=== PATIENT | male | born 1985 | race Caucasian/White ===

== ENCOUNTER 2016-07-15 13:53 | Inpatient (IN) | payer BC ==
[2016-07-15 15:18] VITALS: BMI 28.8
--- NOTE | 2016-07-15 16:23 | HP ---
COWS - Scale Resting Pulse: 0= [place] 80 or Below Sweatin= Chills/Flushing Restless Observation: 3= Extraneous Movement Pupil Size: 2= Moderately Dilated Bone or Joint Aches: 2= Severe Diffuse Aches Runny Nose/ Eye Tearin= Runny Nose/Eyes GI Upset > 30mins: 3= Vomiting/Diarrhea Tremor Observation: 2= Slight Tremor Visible Yawning Observation: 2= >3x During Session Anxiety or Irritability: 2=Irritable/Anxious Goose Flesh Skin: 0=Smooth Skin COWS Score: 19 Admission ROS S - HPI Chief Complaint: i need help to stop using heroin,cocaine and marijuana Allergies/Adverse Reactions: Allergies Allergy/AdvReac Type Severity Reaction Status Date / Time No Known Allergies Allergy Verified 07/15/16 16:02 History of Present Illness: this 31 tears old male with heroin,cocaine and marijuana dependence,seeking detox,never been in detox before anxiety and insomnia nicotine dependence Exam Limitations: No Limitations - Ebola screening Have you traveled outside of the country in the last 21 days: No Have you had contact with anyone from an Ebola affected area: No Have you been sick,other than usual withdrawal symptoms: No Do you have a fever: No - Review of Systems Constitutional: Chills, Diaphoresis, Loss of Appetite, Malaise, Night Sweats, Changes in sleep, Weakness, Unintentional Wgt. Loss EENT: reports: Tearing, Nose Congestion Cardiac: reports: No Symptoms Reported GI: reports: Diarrhea, Nausea, Vomiting, Abdominal cramping : reports: No Symptoms Reported Musculoskeletal: reports: Back Pain, Joint Pain, Muscle Pain, Joint Stiffness Integumentary: reports: Dryness Neuro: reports: Headache, Tremors Endocrine: reports: No Symptoms Reported Hematology: reports: No Symptoms Reported Psychiatric: reports: No Sypmtoms Reported, Judgement Intact, Mood/Affect Appropiate, Orientated x3 (insomnia), Anxious Patient History - Patient Medical History Hx Anemia: No Hx Asthma: No Hx Chronic Obstructive Pulmonary Disease (COPD): No Hx Cancer: No Hx Cardiac Disorders: No Hx Congestive Heart Failure: No Hx Hypertension: No Hx Hypercholesterolemia: No Hx Pacemaker: No HX Cerebrovascular Accident: No Hx Seizures: No Hx Dementia: No Hx Diabetes: No Hx Gastrointestinal Disorders: No Hx Liver Disease: No Hx Genitourinary Disorders: No Hx Sexually Transmitted Disorders: No Hx Renal Disease (ESRD): No Hx Thyroid Disease: No Hx Human Immunodeficiency Virus (HIV): No Hx Hepatitis C: No Hx Depression: No Hx Suicide Attempt: No Hx Bipolar Disorder: No Hx Schizophrenia: No Other Medical History: anxiety,insonia - Patient Surgical History Past Surgical History: No Hx Neurologic Surgery: No Hx Cataract Extraction: No Hx Cardiac Surgery: No Hx Lung Surgery: No Hx Breast Surgery: No Hx Breast Biopsy: No Hx Abdominal Surgery: No Hx Appendectomy: No Hx Cholecystectomy: No Hx Genitourinary Surgery: No Hx Section: No Hx Orthopedic Surgery: No Anesthesia Reaction: No - PPD History Previous Implant?: Yes Documented Results: Negative w/o proof Implanted On Prior R Admission?: No - Smoking Cessation Smoking history: Current every day smoker Have you smoked in the past 12 months: Yes Aproximately how many cigarettes per day: 10 Hx Chewing Tobacco Use: No Initiated information on smoking cessation: Yes 'Breaking Loose' booklet given: 07/15/16 - Substance & Tx. History Hx Alcohol Use: No Hx Substance Use: Yes Substance Use Type: Cocaine, Heroin Hx Substance Use Treatment: No - Substances Abused Heroin Route: Inhalation Frequency: Daily Amount used: 10 BAGS Age of first use: 30 Date of Last Use: 07/14/16 Crack Route: Smoking Frequency: Daily Amount used: 4 BAGS Age of first use: 30 Date of Last Use: 07/14/16 Family Disease History - Family Disease History Family History: Denies Admission Physical Exam BHS - Vital Signs Vital Signs: Vital Signs - 24 hr 07/15/16 15:15 Temperature 97.1 F L Pulse Rate 64 Respiratory 20 Rate Blood Pressure 121/71 - Physical General Appearance: Yes: Moderate Distress, Tremorous, Irritable, Sweating HEENTM: Yes: Normal ENT Inspection, GUI, Pharynx Normal, Nasal Congestion Respiratory: Yes: Lungs Clear, Normal Breath Sounds, No Respiratory Distress Neck: Yes: Within Normal Limits, Supple, Trachea in good position Breast: Yes: Within Normal Limits Cardiology: Yes: Within Normal Limits, Regular Rhythm, Regular Rate, S1, S2 Abdominal: Yes: Within Normal Limits, Normal Bowel Sounds, Non Tender, Flat, Soft Genitourinary: Yes: Within Normal Limits Back: Yes: Muscle Spasm Musculoskeletal: Yes: full range of Motion, Back pain, Joint swelling, Muscle Pain Extremities: Yes: Within Normal Limits, Normal Range of Motion, Tremors 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 NML intact, Fully Oriented, Alert, Motor Strength 5/5 Integumentary: Yes: Dry Lymphatic: Yes: Within Normal Limits - Diagnostic (1) Opioid dependence with withdrawal Current Visit: Yes Status: Acute (2) Cocaine dependence Current Visit: Yes Status: Acute (3) Cannabis abuse Current Visit: Yes Status: Acute (4) Nicotine dependence Current Visit: Yes Status: Acute (5) Weight loss Current Visit: Yes Status: Acute (6) Low back pain Current Visit: Yes Status: Acute (7) Arthritis Current Visit: Yes Status: Acute Cleared for Admission [facility] - Detox or Rehab [facility] Level of Care: Medically Managed Detox Regimen/Protocol: Methadone [facility] Breath Alcohol Content Breath Alcohol Content: 0 Urine Drug Screen - Results Drug Screen Negative: No Urine Drug Screen Results: THC-Marijuana, MAUREEN-Cocaine, OPI-Opiates
[2016-07-15] MEDS ORDERED: guaiFENesin/D-METHORPHAN HB 10 ML UNIT-DOSE CUPS PO PRN (16:26)
[2016-07-15] MEDS ORDERED: LOPERAMIDE HCL 2 MG CAPSULE PO PRN (16:26)
[2016-07-15] MEDS ORDERED: MAG HYDROX/AL HYDROX/SIMETH 30 ML UNIT-DOSE CUP PO PRN (16:26)
[2016-07-15] MEDS ORDERED: MAGNESIUM HYDROX 2400MG/30ML ORAL SUSPENSION 30 ML CUP PO PRN (16:26)
[2016-07-15] MEDS ORDERED: MAGNESIUM CITRATE 300 ML BOTTLE PO PRN (16:26)
[2016-07-15] MEDS ORDERED: hydrOXYzine PAMOATE 50 MG CAPSULE (FP) PO PRN (16:26)
[2016-07-15] MEDS ORDERED: diphenhydrAMINE HCL 50 MG CAPSULE PO PRN (16:26)
[2016-07-15] MEDS ORDERED: P-EPHED 60MG/TRIPROLIDI 2.5MG TABLET PO PRN (16:26)
[2016-07-15] MEDS ORDERED: IBUPROFEN 400 MG TABLET (FP) PO PRN (16:26)
[2016-07-15] MEDS ORDERED: MENTHOL/PHENOL 1 EACH UD MM PRN (16:26)
[2016-07-15] MEDS ORDERED: ACETAMINOPHEN 325 MG TABLET (FP) PO PRN (16:26)
[2016-07-15] MEDS ORDERED: CYCLOBENZAPRINE HCL 10 MG TABLET (FP) PO PRN (16:29)
[2016-07-15] MEDS ORDERED: METHADONE HCL 10 MG TABLET (FOR DETOX USE ONLY) PO ONE ×2 (17:00→23:00)
[2016-07-15] MEDS: diazePAM 5 MG TABLET PO PRN ×2 (17:17→22:20)
[2016-07-15] MEDS: NICOTINE POLACRILEX 2 MG GUM BC PRN ×2 (18:02→22:21)
[2016-07-15 19:35] LABS: URINE APPEARANCE CLEAR; URINE BILIRUBIN NEGATIVE (NEGATIVE); URINE BLOOD NEGATIVE (NEGATIVE); URINE COLOR YELLOW; URINE GLUCOSE (UA) NEGATIVE (NEGATIVE); URINE KETONE NEGATIVE (NEGATIVE); URINE NITRITE NEGATIVE (NEGATIVE); URINE PROTEIN NEGATIVE (NEGATIVE); URINE UROBILINOGEN NEGATIVE E.U./dl (0.2-1.0)
[2016-07-15 19:39] LABS: URINE LEUK ESTERASE 1+ (NEGATIVE)
[2016-07-15 19:44] LABS: URINE MUCUS RARE; URINE RBC <1 /hpf (0-3); URINE WBC 30 /hpf (3-5)
[2016-07-15] MEDS ORDERED: THIAMINE HCL 100 MG TABLET (FP) PO SCH (22:00)
[2016-07-15] MEDS: cloNIDine HCL 0.1 MG TABLET PO SCH (22:20)
[2016-07-16] MEDS: diazePAM 5 MG TABLET PO PRN ×2 (05:38→10:08)
[2016-07-16] MEDS ORDERED: PRENATAL VITAMINS W/ FOLIC ACID TABLET (FP) PO SCH (10:00)
[2016-07-16] MEDS ORDERED: METHADONE HCL 10 MG TABLET (FOR DETOX USE ONLY) PO ONE (10:00)
[2016-07-16] MEDS: cloNIDine HCL 0.1 MG TABLET PO SCH (10:07)
[2016-07-16 10:32] LABS: ALBUMIN 3.4 g/dl (3.4-5.0); ANION GAP 7 (8-16); CALCIUM 8.5 mg/dL (8.5-10.1); CO2 32 mmol/L (21-32); GLUCOSE,RANDOM 101 mg/dL (74-106)
[2016-07-16 10:36] LABS: ALK PHOS 55 U/L (45-117); BILIRUBIN,TOTAL 0.5 mg/dL (0.2-1.0); COCKROFT - GAULT 134.84; CREATININE 1.1 mg/dL (0.7-1.3); SGOT/AST 32 U/L (15-37); SGPT/ALT 44 U/L (12-78); TOT PROT 5.8 g/dl (6.4-8.2)
--- NOTE | 2016-07-16 11:06 | EKG ---
Test Reason : Blood Pressure : / mmHG Vent. Rate : 065 BPM Atrial Rate : 065 BPM P-R Int : 176 ms QRS Dur : 102 ms QT Int : 408 ms P-R-T Axes : 040 069 -07 degrees QTc Int : 424 ms NORMAL SINUS RHYTHM MARKED ST ABNORMALITY, POSSIBLE ANTERIOR SUBENDOCARDIAL INJURY ABNORMAL ECG NO PREVIOUS ECGS AVAILABLE Confirmed by MD KISHAN, LATANYA ([id number]) on 07/16/2016 11:06:49 AM Referred By: Confirmed By:LATANYA HOLLEY MD
[2016-07-16 11:19] LABS: MCH 30.7 pg (25.7-33.7); MCHC 33.8 g/dl (32.0-35.9); MEAN CELL VOLUME 90.7 fl (80-96); MEAN PLT VOLUME 10.2 fl (7.5-11.1); PLATELET COUNT 149 K/MM3 (134-434); RDW 13.3 % (11.9-15.9); WHITE BLOOD COUNT 4.6 K/mm3 (4.0-10.0)
--- NOTE | 2016-07-16 15:09 | PN ---
S COWS - Scale Resting Pulse: 0= [place] 80 or Below Sweatin=Flushed/Facial Moisture Restless Observation: 3= Extraneous Movement Pupil Size: 0= Normal to Room Light Bone or Joint Aches: 2= Severe Diffuse Aches Runny Nose/ Eye Tearin= Runny Nose/Eyes GI Upset > 30mins: 2= Nausea/Diarrhea Tremor Observation of Outstretched Hands: 2= Slight Tremor Visible Yawning Observation: 0= None Anxiety or Irritability: 2=Irritable/Anxious Goose Flesh Skin: 0=Smooth Skin COWS Score: 15 BHS Progress Note (SOAP) Subjective: Sweating, nausea, tremor, chills Objective: 07/16/16 15:06 Last Vital Signs Temp Pulse Resp BP Pulse Ox 98.1 F 70 18 123/76 07/16/16 13:14 07/16/16 13:14 07/16/16 13:14 07/16/16 13:14 Laboratory Tests 07/15/16 07/16/16 07/16/16 19:00 07:40 07:40 WBC 4.6 RBC 4.62 Hgb 14.2 Hct 41.9 MCV 90.7 MCHC 33.8 RDW 13.3 Plt Count 149 MPV 10.2 Sodium 143 Potassium 4.4 Chloride 104 Carbon Dioxide 32 Anion Gap 7 L BUN 14 Creatinine 1.1 Creat Clearance w eGFR > 60 Random Glucose 101 Calcium 8.5 Total Bilirubin 0.5 AST 32 ALT 44 Alkaline Phosphatase 55 Total Protein 5.8 L Albumin 3.4 Urine Color Yellow Urine Appearance Clear Urine pH 6.0 Ur Specific [place] 1.015 Urine Protein Negative Urine Glucose (UA) Negative Urine Ketones Negative Urine Blood Negative Urine Nitrite Negative Urine Bilirubin Negative Urine Urobilinogen Negative Ur Leukocyte Esterase 1+ H Urine RBC <1 Urine WBC 30 Ur Epithelial Cells Rare Urine Mucus Rare RPR Titer 07/16/16 07:40 WBC RBC Hgb Hct MCV MCHC RDW Plt Count MPV Sodium Potassium Chloride Carbon Dioxide Anion Gap BUN Creatinine Creat Clearance w eGFR Random Glucose Calcium Total Bilirubin AST ALT Alkaline Phosphatase Total Protein Albumin Urine Color Urine Appearance Urine pH Ur Specific [place] Urine Protein Urine Glucose (UA) Urine Ketones Urine Blood Urine Nitrite Urine Bilirubin Urine Urobilinogen Ur Leukocyte Esterase Urine RBC Urine WBC Ur Epithelial Cells Urine Mucus RPR Titer Nonreactive Labs noted Assessment: 07/16/16 15:09 Withdrawal symptoms Plan: Continue detox Encouraged to drink lots of water
[2016-07-16 17:15] VITALS: BP 111/55; PULSE 59; TEMP 98.5
--- NOTE | 2016-07-16 17:18 | PN ---
S Progress Note Note: patient did not want to continue treatment,seen by counselor,signed release ama, did not want to wait
--- NOTE | 2016-07-16 17:22 | DS ---
[facility] Detox Discharge Summary Admission Date: 07/15/16 Discharge Date: 07/16/16 - History Present History: Cannabis Dependence, Cocaine Dependence, Opioid Dependence Additional Comments: patient did not want to complete treatment,seen by counselor,signed release ama ,did not want to wait Pertinent Past History: low back pain weight loss arthritis - Physical Exam Results Vital Signs: Vital Signs Temperature 98.5 F 07/16/16 17:15 Pulse Rate 59 L 07/16/16 17:15 Respiratory Rate 18 07/16/16 17:15 Blood Pressure 111/55 07/16/16 17:15 O2 Sat by Pulse Oximetry (%) Pertinent Admission Physical Exam Findings: withdrawal symptom - Medication Discharge Medications: Ambulatory Orders NK [No Known Home Medication] 07/15/16 - Diagnosis (1) Opioid dependence with withdrawal Current Visit: Yes Status: Acute (2) Cocaine dependence Current Visit: Yes Status: Acute (3) Cannabis abuse Current Visit: Yes Status: Acute (4) Nicotine dependence Current Visit: Yes Status: Acute (5) Weight loss Current Visit: Yes Status: Acute (6) Low back pain Current Visit: Yes Status: Acute (7) Arthritis Current Visit: Yes Status: Acute - AMA Did Patient Leave Against Medical Advice: Yes
[2016-07-17] MEDS ORDERED: METHADONE HCL 5 MG TABLET (FOR DETOX USE ONLY) PO ONE (10:00)
[2016-07-18] MEDS ORDERED: METHADONE HCL 5 MG TABLET (FOR DETOX USE ONLY) PO ONE (10:00)
[2016-07-19] MEDS ORDERED: METHADONE HCL 10 MG TABLET (FOR DETOX USE ONLY) PO ONE (10:00)
[2016-07-20] MEDS ORDERED: METHADONE HCL 5 MG TABLET (FOR DETOX USE ONLY) PO ONE (06:00)
== END 2016-07-16 17:24 | disposition left against medical advice (07) | DRG 894 ==
LOC: YASAS 13:53 → Y3N 16:44
PROVIDERS: ADMIT Internal Medicine; ATTEND Internal Medicine
PROC: HZ2ZZZZ Detoxification Services for Substance Abuse Treatment (ICD-10-PCS; principal; 2016-07-15)
DX: F11.23 Opioid dependence with withdrawal (principal); F14.20 Cocaine dependence, uncomplicated; F12.20 Cannabis dependence, uncomplicated; F17.210 Nicotine dependence, cigarettes, uncomplicated; M54.5 Low back pain; M19.90 Unspecified osteoarthritis, unspecified site; Z87.898 Personal history of other specified conditions
CPT/HCPCS: 36415; 80053; 81003; 81015; 85027; 86593; 93005; 93010